=== PATIENT | male | born 1985 | race Caucasian/White ===

== ENCOUNTER 2018-04-13 12:54 | Emergency (ER) | payer OTHER ==
[2018-04-13] MEDS ORDERED: TAMS0.4C97 PO (22:59)
[2018-04-13] MEDS ORDERED: ONDA4TAB12 PO (22:59)
[2018-04-13] MEDS ORDERED: HYDR-971 PO (22:59)
== END 2018-04-13 13:28 | disposition left against medical advice (07) ==
LOC: ER 12:54
DX: R10.9 Unspecified abdominal pain (principal); Z53.21 Procedure and treatment not carried out due to patient leaving prior to being seen by health care provider

== ENCOUNTER 2018-04-13 18:25 | Emergency (ER) | payer OTHER ==
[~2018-04-13] VITALS: Ht 170.2 cm; Wt 83.9 kg
[2018-04-13 21:11] LABS: BASO % 0 % (0-3); EOS % 0 % (0-3); HEMATOCRIT 42.8 % (39.0-53.0); HEMOGLOBIN 14.9 g/dL (13.0-17.5); LYMPH # 1.7 x10^3/uL (1.0-4.8); LYMPH % 13 % (24-48); MEAN CORPUSCULAR HEMOGLOBIN 30 pg (25-35); MEAN CORPUSCULAR HGB CONC 35 g/dL (31-37); MEAN CORPUSCULAR VOLUME 86 fL (79-100); MONO # 0.7 x10^3/uL (0.0-1.1); MONO % 6 % (0-9); NEUT # 10.5 x10^3uL (1.8-7.7); NEUT % 81 % (31-73); PLATELET COUNT 233 x10^3/uL (140-400); RED BLOOD COUNT 4.98 x10^6/uL (4.30-5.70); RED CELL DISTRIBUTION WIDTH 12.9 % (11.5-14.5)
[2018-04-13 21:13] LABS: BILIRUBIN,URINE NEGATIVE (NEG); CLARITY,URINE CLEAR; COLOR,URINE YELLOW; NITRITE,URINE NEGATIVE (NEG); PROTEIN,URINE NEGATIVE (NEG-TRACE); UROBILINOGEN,URINE 0.2 mg/dL (0.2 mg/dL)
[2018-04-13 21:19] LABS: CALCIUM 9.1 mg/dL (8.5-10.1); CREATININE 1.1 mg/dL (0.7-1.3); GFR 78.6; POTASSIUM 4.1 mmol/L (3.5-5.1)
[2018-04-13 21:27] LABS: BACTERIA,URINE FEW /HPF (0-FEW); RBC,URINE >40 /HPF (0-2); SQUAMOUS EPITHELIAL CELL,UR OCC /LPF; WBC,URINE 0 /HPF (0-4)
[2018-04-13] MEDS ORDERED: KETOROLAC 30 MG/ML VIAL. IV ONE (21:30)
[2018-04-13] MEDS ORDERED: ONDANSETRON PF 4 MG/2 ML VIAL. IV ONE (21:30)
[2018-04-13] MEDS ORDERED: IV NORMAL SALINE 1000ML BAG 1,000 ML IV SCH (21:30)
[2018-04-13 22:35] VITALS: BP 142/79
--- NOTE | 2018-04-13 22:43 | RAD ---
CT scan of the abdomen and pelvis without contrast 04/13/2018 CLINICAL HISTORY: Right flank pain. TECHNIQUE: Unenhanced, contiguous, 2 mm axial sections were obtained through the abdomen and pelvis. One or more of the following individualized dose reduction techniques were utilized for this study: 1. Automated exposure control. 2. Adjustment of the mA and/or kV according to patient size. 3. Use of iterative reconstruction technique. FINDINGS: Comparison study is dated 07/26/2006. Images through the lung bases demonstrate minimal dependent subsegmental atelectasis bilaterally. The liver, spleen, pancreas, adrenal glands and left kidney are within normal limits. The right kidney is mildly enlarged. A 1 mm nonobstructing calculus is seen involving the midpole of the right kidney. Mild dilatation of the right intrarenal collecting system is seen. The right ureter is mildly dilated. Within the distal right ureter a 5 mm distal ureteral calculus is seen. This is approximately 1 cm lateral to the expected location of the right UVJ. It is causing mild obstruction of the right collecting system. The abdominal aorta tapers normally. The gallbladder is well-distended. No free fluid or free air is seen within the abdomen. There is no evidence of bowel obstruction. The appendix is well-visualized and is within normal limits. Images through the pelvis demonstrate the urinary bladder distended with urine. No free fluid is seen. Minimal S-shaped curvature of the thoracolumbar spine is seen. IMPRESSION: 5 mm distal right ureteral calculus is seen near the right UVJ which is causing mild obstruction of the right collecting system. Electronically signed by: Davide Rocha MD (04/13/2018 10:39 PM) [facility]
[2018-04-13] MEDS ORDERED: ONDA4TAB12 PO (22:59)
[2018-04-13] MEDS ORDERED: TAMS0.4C97 PO (22:59)
[2018-04-13] MEDS ORDERED: HYDR-971 PO (22:59)
--- NOTE | 2018-04-13 23:01 | PHYS DOC ---
Past Medical History Past Medical History: Kidney Stone Past Surgical History: No Surgical History Drug Use: None Adult General Chief Complaint Chief Complaint: FLANK PAIN HPI HPI Patient is a 32 year old male who presents with history of kidney stones was here earlier but left without being seen. States she has a past history of a kidney stone but never saw a urologist. Patient states he takes no medications daily. Patient is allergic to sulfa. Patient has no primary care. Patient states at 5:00 this morning he began having right flank pain that wraps around to the right lower abdomen and was urinating with blood clots. Patient states today he has taken [place], Tylenol 3, and a muscle relaxer. Patient states she last took anything at 1700 today. Patient states he had a bout of nausea and vomiting earlier. Patient currently rates his pain a 4 out of 10 and states he is just has some discomfort but no real pain at the moment. Patient is afebrile. Review of Systems Review of Systems Constitutional: Denies fever or chills [] Eyes: Denies change in visual acuity, redness, or eye pain [] HENT: Denies nasal congestion or sore throat [] Respiratory: Denies cough or shortness of breath [] Cardiovascular: No additional information not addressed in HPI [] GI: Right lower abdominal pain, nausea, vomiting. Denies bloody stools or diarrhea [] : Denies dysuria. Hematuria [] Musculoskeletal: Right back pain. Denies joint pain [] Integument: Denies rash or skin lesions [] Neurologic: Denies headache, focal weakness or sensory changes [] Endocrine: Denies polyuria or polydipsia [] All other systems were reviewed and found to be within normal limits, except as documented in this note. Current Medications Current Medications Current Medications Medications (Trade) Dose Ordered Sig/Gavin Start Time Stop Time Status Last Admin Dose Admin Ketorolac Tromethamine (Toradol 30mg Vial) 30 mg 1X ONCE 04/13/18 21:30 04/13/18 21:31 DC 04/13/18 21:14 30 MG Ondansetron HCl (Zofran) 4 mg 1X ONCE 04/13/18 21:30 04/13/18 21:31 DC 04/13/18 21:14 4 MG Sodium Chloride 1,000 ml @ 1,000 mls/hr Q1H 04/13/18 21:30 04/13/18 22:29 DC 04/13/18 21:13 1,000 MLS/HR Allergies Allergies Allergies Coded Allergies Type Severity Reaction Last Updated Verified No Known Drug Allergies 04/13/18 No Physical Exam Physical Exam Constitutional: Well developed, well nourished, no acute distress, non-toxic appearance. [] HENT: Normocephalic, atraumatic, bilateral external ears normal, oropharynx moist, no oral exudates, nose normal. [] Eyes: PERRLA, EOMI, conjunctiva normal, no discharge. [] Neck: Normal range of motion, no tenderness, supple, no stridor. [] Cardiovascular:Heart rate regular rhythm, no murmur [] Lungs & Thorax: Bilateral breath sounds clear to auscultation [] Abdomen: Bowel sounds normal, soft, no tenderness, no masses, no pulsatile masses. [] Skin: Warm, dry, no erythema, no rash. [] Back: No tenderness, no CVA tenderness. [] Extremities: No tenderness, no cyanosis, no clubbing, ROM intact, no edema. [] Neurologic: Alert and oriented X 3, normal motor function, normal sensory function, no focal deficits noted. [] Psychologic: Affect normal, judgement normal, mood normal. [] Current Patient Data Vital Signs Vital Signs Date Time Temp Pulse Resp B/P (MAP) Pulse Ox O2 Delivery O2 Flow Rate FiO2 04/13/18 20:15 98.2 88 18 145/90 (108) 99 Room Air 98.2 Lab Values Laboratory Tests Test 04/13/18 18:58 04/13/18 20:57 Urine Collection Type Unknown Urine Color Yellow Urine Clarity Clear Urine pH 7.0 Urine Specific [place] 1.020 Urine Protein Negative mg/dL (NEG-TRACE) Urine Glucose (UA) Negative mg/dL (NEG) Urine Ketones (Stick) Negative mg/dL (NEG) Urine Blood Large (NEG) Urine Nitrite Negative (NEG) Urine Bilirubin Negative (NEG) Urine Urobilinogen Dipstick 0.2 mg/dL (0.2 mg/dL) Urine Leukocyte Esterase Negative (NEG) Urine RBC >40 /HPF (0-2) Urine WBC 0 /HPF (0-4) Urine Squamous Epithelial Cells Occ /LPF Urine Bacteria Few /HPF (0-FEW) Urine Mucus Slight /LPF White Blood Count 13.0 x10^3/uL (4.0-11.0) H Red Blood Count 4.98 x10^6/uL (4.30-5.70) Hemoglobin 14.9 g/dL (13.0-17.5) Hematocrit 42.8 % (39.0-53.0) Mean Corpuscular Volume 86 fL (79-100) Mean Corpuscular Hemoglobin 30 pg (25-35) Mean Corpuscular Hemoglobin Concent 35 g/dL (31-37) Red Cell Distribution Width 12.9 % (11.5-14.5) Platelet Count 233 x10^3/uL (140-400) Neutrophils (%) (Auto) 81 % (31-73) H Lymphocytes (%) (Auto) 13 % (24-48) L Monocytes (%) (Auto) 6 % (0-9) Eosinophils (%) (Auto) 0 % (0-3) Basophils (%) (Auto) 0 % (0-3) Neutrophils # (Auto) 10.5 x10^3uL (1.8-7.7) H Lymphocytes # (Auto) 1.7 x10^3/uL (1.0-4.8) Monocytes # (Auto) 0.7 x10^3/uL (0.0-1.1) Eosinophils # (Auto) 0.0 x10^3/uL (0.0-0.7) Basophils # (Auto) 0.0 x10^3/uL (0.0-0.2) Sodium Level 142 mmol/L (136-145) Potassium Level 4.1 mmol/L (3.5-5.1) Chloride Level 104 mmol/L (98-107) Carbon Dioxide Level 29 mmol/L (21-32) Anion Gap 9 (6-14) Blood Urea Nitrogen 15 mg/dL (8-26) Creatinine 1.1 mg/dL (0.7-1.3) Estimated GFR (Cockcroft-Gault) 78.6 Glucose Level 100 mg/dL (70-99) H Calcium Level 9.1 mg/dL (8.5-10.1) Laboratory Tests 04/13/18 20:57 Laboratory Tests 04/13/18 20:57 EKG EKG [] Radiology/Procedures Radiology/Procedures CT ABD PELV Impressions: [facility] [address] [place] [address] IMAGING REPORT Signed PATIENT: MARIA G LUGO ACCOUNT: [id number] : 1985 LOCATION: ER AGE: 32 SEX: M EXAM STATUS: REG ER ORD. PHYSICIAN: GABBIE MORENO APRN REASON: Flank pain, hx kidney stone PROCEDURE: CT ABDOMEN PELVIS WO CONTRAST CT scan of the abdomen and pelvis without contrast 04/13/2018 CLINICAL HISTORY: Right flank pain. TECHNIQUE: Unenhanced, contiguous, 2 mm axial sections were obtained through the abdomen and pelvis. One or more of the following individualized dose reduction techniques were utilized for this study: 1. Automated exposure control. 2. Adjustment of the mA and/or kV according to patient size. 3. Use of iterative reconstruction technique. FINDINGS: Comparison study is dated 07/26/2006. Images through the lung bases demonstrate minimal dependent subsegmental atelectasis bilaterally. The liver, spleen, pancreas, adrenal glands and left kidney are within normal limits. The right kidney is mildly enlarged. A 1 mm nonobstructing calculus is seen involving the midpole of the right kidney. Mild dilatation of the right intrarenal collecting system is seen. The right ureter is mildly dilated. Within the distal right ureter a 5 mm distal ureteral calculus is seen. This is approximately 1 cm lateral to the expected location of the right UVJ. It is causing mild obstruction of the right collecting system. The abdominal aorta tapers normally. The gallbladder is well-distended. No free fluid or free air is seen within the abdomen. There is no evidence of bowel obstruction. The appendix is well-visualized and is within normal limits. Images through the pelvis demonstrate the urinary bladder distended with urine. No free fluid is seen. Minimal S-shaped curvature of the thoracolumbar spine is seen. IMPRESSION: 5 mm distal right ureteral calculus is seen near the right UVJ which is causing mild obstruction of the right collecting system. Electronically signed by: Davide Rocha MD (04/13/2018 10:39 PM) [facility] DICTATED and SIGNED BY: DAVIDE ROCHA MD DATE: 04/13/18 2235 Course & Med Decision Making Course & Med Decision Making Patient is a 32 year old male who presents with history of kidney stones was here earlier but left without being seen. States she has a past history of a kidney stone but never saw a urologist. Patient states he takes no medications daily. Patient is allergic to sulfa. Patient has no primary care. Patient states at 5:00 this morning he began having right flank pain that wraps around to the right lower abdomen and was urinating with blood clots. Patient states today he has taken [place], Tylenol 3, and a muscle relaxer. Patient states she last took anything at 1700 today. Patient states he had a bout of nausea and vomiting earlier. Patient currently rates his pain a 4 out of 10 and states he is just has some discomfort but no real pain at the moment. Patient is afebrile. Abdomen is soft and nontender and there are no masses felt. Bilateral CVA has no tenderness. Patient vital signs are stable. Patient is alert and oriented. Skin is pink warm and dry and mucous membranes are moist. Rate regular without murmur. CT ABD PELV shows 5 mm distal right ureteral calculus is seen near the right UVJ which is causing mild obstruction of the right collecting system. Patient is given Toradol and Zofran in the ED. Patient's urine is not infected. Patient states he is urinating. Patient will be referred to urology to follow up as soon as possible. Patient will be given a prescription for [place] and Flomax. Will be given a urine strainer. Patient is stable and in no distress. [] Dragon Disclaimer Dragon Disclaimer This electronic medical record was generated, in whole or in part, using a voice recognition dictation system. Departure Departure Impression: Primary Impression: Kidney stone Disposition: 01 HOME, SELF-CARE Condition: STABLE Referrals: NO PCP (PCP) YONNY BAE MD Patient Instructions: Kidney Stones Additional Instructions: CALL UROLOGY TOMORROW. TAKE MEDICATIONS PRESCRIBED. Scripts Tamsulosin Hcl (FLOMAX) 0.4 Mg Cap.er.24h 1 CAP PO DAILY, #20 CAP 11 Refills Prov: GABBIE MORENO DOUBLE ENDING MACHINE OPERATOR 04/13/18 Ondansetron (ONDANSETRON ODT) 4 Mg Tab.rapdis 1 TAB PO PRN Q6-8HRS, #16 TAB Prov: GABBIE MORENO DOUBLE ENDING MACHINE OPERATOR 04/13/18 Hydrocodone/Apap 5-325 (NORCO 5-325 TABLET) 1 Each Tablet 1 TAB PO PRN Q6HRS PRN for PAIN, #8 TAB 0 Refills Prov: GABBIE MORENO APRN 04/13/18 GABBIE MORENO APRN Apr 13, 2018 23:01
== END 2018-04-13 23:38 | disposition home or self-care (01) ==
LOC: ER 18:25
DX: N20.0 Calculus of kidney (principal); R10.31 Right lower quadrant pain; Z88.2 Allergy status to sulfonamides
CPT/HCPCS: 36415; 74176; 80048; 81001; 85025; 96361; 96374; 96375; 99285; J1885; J2405; J7030